=== PATIENT | female | born 1940 | race Caucasian/White ===

== ENCOUNTER 2021-08-20 08:58 | Outpatient (RCR) | payer MEDICARE, BC, SELFPAY ==
[2021-08-20] MEDS: ACETAMINOPHEN 325 MG TABLET 650 MG PO (10:20)
[2021-08-20] MEDS: FAMOTIDINE 20 MG TABLET PO (10:20)
[2021-08-20 10:22] VITALS: BP 148/64; PULSE 88; RESP 22; TEMP 37.2; O2SAT 100
[2021-08-20 11:32] VITALS: BP 134/58
--- NOTE | 2021-08-21 08:48 | PC.NURSE ---
Patient stated she had chills through the night. Patient has stomach ache. Patient states that she is feeling slightly better this morning.
== END 2021-08-20 17:00 ==
LOC: AMCINF 08:58
PROVIDERS: PCP Family Medicine; Visit Provider Internal Medicine Hematology & Oncology
DX: U07.1 COVID-19 (principal); E11.9 Type 2 diabetes mellitus without complications
CPT/HCPCS: A9270; M0243; Q0243

== ENCOUNTER → 2021-11-12 13:44 | Outpatient (CLI) | payer MEDICARE, SELFPAY ==
--- NOTE | ~2021-11-12 | CT_ITS ---
EXAMINATION: CT chest abdomen pelvis w con DATE: 11/12/2021 14:48 INDICATION: COVID-19 pneumonia. Abdominal pain. TECHNIQUE: Computed tomography (CT) of the chest, abdomen, and pelvis was performed with 100 mL Omnip aque 350 intravenous contrast. Automated exposure control and iterative reconstruction technique were employed. The dose-length product was 813.39 mGy-cm. COMPARISON: Chest single view 02/28/2012 FINDINGS: CHEST CT: There is widespread septal thickening in the lungs with groundglass opacities with a lower lung predo minance. There is bronchiectasis in the lungs with a lower lung predominance. A calcified right lung nodule is consistent with old granulomatous disease. There are small areas of peripheral honeycombing in the upper lobes. No pleural effusion. The heart size is normal. There are coronary artery calcifi cations. No pericardial effusion. The central pulmonary arteries are enlarged, consistent with pulmon darinel arterial hypertension. There is mild mediastinal and bilateral hilar lymphadenopathy, likely reac tive. There is a large sliding hiatal hernia. There is severe thoracic spondylosis. ABDOMEN/PELVIS CT: The liver and spleen are normal. There are changes of cholecystectomy. The pancreas and adrenal gland s are normal. There is cortical thinning of the kidneys. There is a 1.9 cm cyst in right kidney. Ther e is a supraumbilical ventral hernia containing nonobstructed transverse colon. There is a supraumbil ical periumbilical ventral hernia containing nonobstructed small bowel. There are changes of appendec jurgen. There are no pathologically enlarged lymph nodes. There is no free intraperitoneal fluid. Pelvi c floor relaxation is noted. There is severe lumbar spondylosis. IMPRESSION: 1. Diffuse lung disease, likely chronic interstitial lung disease in a pattern of usual interstitial pneumonia (UIP) versus nonspecific interstitial pneumonia (NSIP). Some component of acute lung diseas e cannot be excluded. 2. Large sliding hiatal hernia. 3. Mild mediastinal and bilateral hilar lymphadenopathy, likely reactive. 4. Two ventral hernias containing nonobstructed bowel. Reviewed, dictated and finalized at location [facility] IMPRESSION: 1. Diffuse lung disease, likely chronic interstitial lung disease in a pattern of usual interstitial pneumonia (UIP) versus nonspecific interstitial pneumonia (NSIP). Some component of acute lung disease cannot be excluded. 2. Large sliding hiatal hernia. 3. Mild mediastinal and bilateral hilar lymphadenopathy, likely reactive. 4. Two ventral hernias containing nonobstructed bowel.
[2021-11-12 14:22] LABS: Estimated Glomerular Filt Rate > 60
== END ==
PROVIDERS: Visit Provider Family Medicine
DX: R10.9 Unspecified abdominal pain (principal); J12.82 Pneumonia due to coronavirus disease 2019; R91.8 Other nonspecific abnormal finding of lung field; K44.9 Diaphragmatic hernia without obstruction or gangrene; R59.0 Localized enlarged lymph nodes; K43.9 Ventral hernia without obstruction or gangrene
CPT/HCPCS: 71260; 74177; Q9967

== ENCOUNTER 2022-12-02 13:38 | Outpatient (CLI) | payer MEDICARE, SELFPAY ==
[2022-12-02] VITALS (9 sets, daily range): PULSE 90–122; O2SAT 85–91
--- NOTE | 2022-12-02 14:53 | HOMEO2EVAL ---
Evaluation was performed at [facility] Home Oxygen Evaluation RC: Home Oxygen (O2) Evaluation Start: 12/02/22 14:35 Freq: Status: Active Protocol: RPE Activity Type Activity Date Activity User E-sign Co-sign Detail Recorded Client Recorded Date Recorded By Document 12/02/22 13:40 [email or web address] 12/02/22 14:52 DJO Document 12/02/22 13:45 [email or web address] [email or web address] 12/02/22 14:52 DJO Document 12/02/22 13:50 [email or web address] [email or web address] 12/02/22 14:52 DJO Document 12/02/22 13:55 [email or web address] [email or web address] 12/02/22 14:52 DJO Document 12/02/22 14:00 [email or web address] [email or web address] 12/02/22 14:52 DJO Document 12/02/22 14:05 [email or web address] [email or web address] 12/02/22 14:52 DJO Document 12/02/22 14:10 [email or web address] [email or web address] 12/02/22 14:52 DJO Document 12/02/22 14:15 [email or web address] [email or web address] 12/02/22 14:52 DJO Document 12/02/22 14:30 [email or web address] 12/02/22 14:52 DJO 12/02/22 12/02/22 12/02/22 13:40 13:45 13:50 Home O2 Evaluation [Oxygen] -Test Phase Resting Resting Resting -Oxygen Delivery Room Air Nasal Cannula Nasal Cannula -Oxygen Flow Rate (L/min) 1 2 [Pulse Oximetry] -Pulse Oximetry (90-100 %) 87 L 88 L 91 [Pulse Rate] -Pulse Rate (60-100 beats/min) 110 H 109 H 108 H [Evaluation] -Activity Tolerance [Exercise] -Ambulation Distance (feet) -Ambulation Distance (meters) [Comments] -Home Oxygen Evaluation Comments [Charges] -Treatment Charges O2 Evaluation - Outpatient 12/02/22 12/02/22 12/02/22 13:55 14:00 14:05 Home O2 Evaluation [Oxygen] -Test Phase Exercise Exercise Exercise -Oxygen Delivery Nasal Cannula Nasal Cannula Nasal Cannula -Oxygen Flow Rate (L/min) 2 3 4 [Pulse Oximetry] -Pulse Oximetry (90-100 %) 85 L 86 L 87 L [Pulse Rate] -Pulse Rate (60-100 beats/min) 116 H 114 H 117 H [Evaluation] -Activity Tolerance [Exercise] -Ambulation Distance (feet) -Ambulation Distance (meters) [Comments] -Home Oxygen Evaluation Comments [Charges] -Treatment Charges 12/02/22 12/02/22 12/02/22 14:10 14:15 14:30 Home O2 Evaluation [Oxygen] -Test Phase Exercise Exercise Resting -Oxygen Delivery Nasal Cannula Nasal Cannula Nasal Cannula -Oxygen Flow Rate (L/min) 5 5 2 [Pulse Oximetry] -Pulse Oximetry (90-100 %) 88 L 91 91 [Pulse Rate] -Pulse Rate (60-100 beats/min) 120 H 122 H 90 [Evaluation] -Activity Tolerance Fair [Exercise] -Ambulation Distance (feet) 250 -Ambulation Distance (meters) 76.19 [Comments] -Home Oxygen Evaluation Comments PT ORDERED FOR 6 MINUTE WALK, SHE WAS ONLY ABLE TO WALK 250 FEET AND HAD TO STOP DUE TO SOB. HOME O2 EVAL DONE INSTEAD. EILEEN AT DR IGNACIO'S OFFICE NOTIFIED . [Charges] -Treatment Charges
--- NOTE | 2022-12-02 14:54 | PCRCNOTE ---
Pulmonary Function Test stopped. Patient unable to requirements of test. Home O2 eval completed. Patient walked [address] Liz [address] Frias s office notified.
--- NOTE | 2022-12-09 10:30 | HOMEO2EVAL ---
Evaluation was performed at [facility] Home Oxygen Evaluation RC: Home Oxygen (O2) Evaluation Start: 12/02/22 14:35 Freq: Status: Discharge Protocol: RPE Activity Type Activity Date Activity User E-sign Co-sign Detail Recorded Client Recorded Date Recorded By Document 12/02/22 13:40 [email or web address] [email or web address] 12/02/22 14:52 DJO Document 12/02/22 13:45 [email or web address] [email or web address] 12/02/22 14:52 DJO Document 12/02/22 13:50 [email or web address] [email or web address] 12/02/22 14:52 DJO Document 12/02/22 13:55 [email or web address] [email or web address] 12/02/22 14:52 DJO Document 12/02/22 14:00 [email or web address] [email or web address] 12/02/22 14:52 DJO Document 12/02/22 14:05 [email or web address] [email or web address] 12/02/22 14:52 DJO Document 12/02/22 14:10 [email or web address] [email or web address] 12/02/22 14:52 DJO Document 12/02/22 14:15 [email or web address] [email or web address] 12/02/22 14:52 DJO Document 12/02/22 14:30 [email or web address] [email or web address] 12/02/22 14:52 DJO 12/02/22 12/02/22 12/02/22 13:40 13:45 13:50 Home O2 Evaluation [Oxygen] -Test Phase Resting Resting Resting -Oxygen Delivery Room Air Nasal Cannula Nasal Cannula -Oxygen Flow Rate (L/min) 1 2 [Pulse Oximetry] -Pulse Oximetry (90-100 %) 87 L 88 L 91 [Pulse Rate] -Pulse Rate (60-100 beats/min) 110 H 109 H 108 H [Evaluation] -Activity Tolerance [Exercise] -Ambulation Distance (feet) -Ambulation Distance (meters) [Comments] -Home Oxygen Evaluation Comments [Charges] -Treatment Charges O2 Evaluation - Outpatient 12/02/22 12/02/22 12/02/22 13:55 14:00 14:05 Home O2 Evaluation [Oxygen] -Test Phase Exercise Exercise Exercise -Oxygen Delivery Nasal Cannula Nasal Cannula Nasal Cannula -Oxygen Flow Rate (L/min) 2 3 4 [Pulse Oximetry] -Pulse Oximetry (90-100 %) 85 L 86 L 87 L [Pulse Rate] -Pulse Rate (60-100 beats/min) 116 H 114 H 117 H [Evaluation] -Activity Tolerance [Exercise] -Ambulation Distance (feet) -Ambulation Distance (meters) [Comments] -Home Oxygen Evaluation Comments [Charges] -Treatment Charges 12/02/22 12/02/22 12/02/22 14:10 14:15 14:30 Home O2 Evaluation [Oxygen] -Test Phase Exercise Exercise Resting -Oxygen Delivery Nasal Cannula Nasal Cannula Nasal Cannula -Oxygen Flow Rate (L/min) 5 6 2 [Pulse Oximetry] -Pulse Oximetry (90-100 %) 88 L 91 91 [Pulse Rate] -Pulse Rate (60-100 beats/min) 120 H 122 H 90 [Evaluation] -Activity Tolerance Fair [Exercise] -Ambulation Distance (feet) 100 -Ambulation Distance (meters) 30.47 [Comments] -Home Oxygen Evaluation Comments PT ORDERED FOR 6 MINUTE WALK, SHE WAS ONLY ABLE TO WALK 100 FEET AND HAD TO STOP DUE TO SOB. HOME O2 EVAL DONE INSTEAD. EILEEN AT DR IGNACIO'S OFFICE NOTIFIED . [Charges] -Treatment Charges
== END 2022-12-02 13:39 | disposition home or self-care (01) ==
LOC: ANHPFT 13:39
DX: J84.9 Interstitial pulmonary disease, unspecified (principal)
CPT/HCPCS: 94060; 94618; 94726; 94729